=== PATIENT | male | born 1935 | race Caucasian/White ===

== ENCOUNTER 2023-08-23 10:56 | Emergency (ER) | payer OTHER, SELFPAY ==
[2023-08-23 11:00] VITALS: BP 167/87
[2023-08-23 11:02] VITALS: BP 167/87
[2023-08-23 12:06] VITALS: BP 166/76
[2023-08-23] MEDS: ADACEL 0.5 ML IM (12:10)
[2023-08-23 14:00] VITALS: BP 173/83
[2023-08-23 15:00] VITALS: BP 161/73
--- NOTE | 2023-08-23 15:38 | ED.GENMED ---
History of Present Illness
General
Chief Complaint: Head Injury
Source: patient
Exam Limitations: none
Time Seen by Provider: 08/23/23 11:28
Nursing documentation reviewed up to this point in time: agreed with
Travel History
Have you had any contact with someone who has COVID-19?: No
Do you have any symptoms of coronavirus? Fever > 100 degrees, chills, cough, shortness of breath, sore throat, loss of taste or smell, muscle aches, or headache?: No
History of Present Illness
History of Present Illness:
88-year-old male with history as documented presents to the emergency department for evaluation after fall. Patient says that he was trying to kick a plug/wire out of the way and while he was balancing on 1 foot lost his balance and fell to the
side. He struck the middle of his head on the ground. He did not lose consciousness. Family called EMS to bring him to the hospital. He has some mild pain in the area of a frontal scalp/forehead laceration. Denies any significant headache.
Denies any neck pain. He denies any other injuries�no chest pain, abdominal pain, back pain. No pain in his extremities although he does have a minor skin tear to the right forearm. He denies being on blood thinners.
Review of Systems
Review of Systems
All Other Systems: ROS reviewed and negative except as documented in HPI and ROS
Constitutional: Denies fever
Respiratory: Denies cough or trouble breathing
Cardiac: Denies chest pain
ABD/GI: Denies abdominal pain, nausea or vomiting
: Denies flank pain
Musculoskeletal: Denies neck pain or back pain
Skin: Reports other (Laceration)
Neurological: Denies dizzy, headache, weakness or numbness
Phy Exam
Physical Exam
Physical Exam:
General: Awake, alert, oriented x3; no acute distress
Head: Normocephalic, frontal scalp hematoma with a 4 cm linear laceration in the middle of his forehead/frontal scalp
Eyes: Conjunctiva normal, EOMI, pupils equal round reactive to light bilaterally
Throat: Airway intact, handling secretions
Neck: Trachea midline, cervical collar in place, no tenderness in the cervical spine
Lungs: Clear to auscultation bilaterally, no wheezing, rales, rhonchi
Heart: Regular rate and rhythm, no murmurs, gallops, or rubs; no chest wall tenderness
Back: No signs of trauma to the back or flank and no tenderness in thoracic or lumbar spine
Abd: Soft, non distended, nontender
Neuro: Cranial nerves grossly intact, speech fluid
Skin: Frontal scalp laceration, skin tear to the right forearm
Extremities: No reproducible tenderness in his extremities allows for passive range of motion all extremities without significant discomfort; good pulses in all extremities
Scores
Heart Failure Risk
Heart Failure Risk Score: Not Applicable
Heart Score for Chest Pain Patients
STEMI patient?: Not applicable
Withdrawal Assessment of Alcohol
Withdrawal Assessment Completed?: Not applicable
Course
Orders/Labs/Results
Orders:
Orders
08/23/23 11:39
Tetanus/Diphth/Acelpertussis [Adacel] 0.5 ml IM .ONCE ONE
08/23/23 11:40
CT Cervical Spine W/o Iv Contr Urgent
Comment:
Reason For Exam: fall with frontal trauma
CT Head W/o Iv Contrast Urgent
Comment:
Reason For Exam: fall with frontal trauma
08/23/23 14:13
Lidocaine/Epinephrine/Tetracai [Let Topical Anesthetic Gel] 3 ml .ROUTE .STK-MED ONE
08/23/23 14:55
Bacitracin Zinc [Bacitracin Ointment] 1 applic .ROUTE .STK-MED ONE
Vital Signs
Initial and Last Documented VS:
Initial Vital Signs
BP
167/87
08/23/23 11:00
Last Documented Vital Signs
Temp Pulse Resp BP Pulse Ox
36.4 C 81 21 161/73 100
08/23/23 11:02 08/23/23 15:00 08/23/23 15:00 08/23/23 15:00 08/23/23 15:00
Procedures
Laceration Closure
Middle Forehead:
Status of Wound: clean
Size of Wound in cm: 4
Description of Wound Edges: sharp
Preparation: cleaned with saline
Anesthesia: Topical-LET
Revision/Debridement: routine- no revision
Type of Closure: single layer closure
Skin Closure Material: 6-0 nylon
Number of sutures: 7
MDM/Problems Addressed
Differential Diagnosis Includes:
Traumatic head injury including subdural hematoma must be ruled out; he has an obvious frontal hematoma and laceration
MDM/Problems Addressed:
88-year-old male presents for evaluation after mechanical fall with head trauma. No loss of consciousness. Has a frontal scalp hematoma and laceration. Minor skin tear to the right arm. No other serious injuries. Hypertensive otherwise normal
vitals. Exam as above. Sent for CT head and cervical spine which are negative for any acute posttraumatic injury. Laceration irrigated and repaired as documented in procedure note. Cleaned and dressed skin tear. Provided antibiotic ointment.
Discharged to follow-up with PCP or return here for suture removal in 1 week. Patient and family feel comfortable with this and in fact requesting discharge. All questions answered.
Acute Exacerbation and/or Progression of Chronic Illness:
Acutely hypertensive�no signs or symptoms of hypertensive emergency no indication for emergent antihypertensive therapy at present
Acute Exacerbation and/or Progression of Chronic Illness: HTN
*Radiology
Radiology exam reviewed: radiology read reviewed
*Pulse Oximetry
Patient hypoxic: no
*Critical Care Note
Total Time (30-74mins, 75-104mins- exclusive of procedures): Not Applicable
Data Reviewed
Review of Other/Old Records Reveals: Labs and Records
Source: patient and family
ED Attending Note
-
Portions of this chart may have been created with voice recognition software.� Occasional wrong word or��sound alike� substitutions may have occurred due to the inherent limitations of voice recognition software.
Discharge Plan
Departure
Patient Disposition: Home (Routine Discharge)
Date of Disposition: 08/23/23
Time of Disposition: 15:05
Patient with high blood pressure during this ER visit?: Yes
Discharge Problem:
Laceration of forehead, Skin tear of forearm without complication
Instructions: Laceration Repair With Stitches (DC), Wound Care ED
Prescriptions:
No Action
multivitamin Tablet
1 tab PO NOON
fluticasone propionate 50 mcg/actuation [place],Suspension
1 spray INTRANASAL DAILYPRN PRN (Reason: Allergies)
carboxymethylcellulose sodium 1 % Drops, Liquid Gel
1 drp BOTH EYES BIDPRN PRN (Reason: dry eyes)
dexlansoprazole [Dexilant] 60 mg Capsule,Biphase Delayed Releas
60 mg PO DAILY
ascorbate calcium (vitamin C) 500 mg Tablet
1,000 mg PO DAILY
Visbiome 112.5 billion cell Capsule
1 cap PO DAILY
alum-mag hydroxide-simeth [Mag-Al Plus] 200-200-20 mg/5 mL Suspension
30 ml PO Q4HPRN PRN (Reason: indigestion) Qty: 0 0RF
acetaminophen 325 mg Tablet
650 mg PO Q6HPRN PRN (Reason: MILD PAIN) Qty: 100 0RF
metoprolol succinate 25 mg Tablet Extended Release 24 Hr
25 mg PO BID Qty: 60 0RF
multivitamin with folic acid [Tab-A-Mary [place]] 400 mcg Tablet
1 tab PO NOON 30 Days Qty: 30 0RF
sodium chloride 1,000 mg Tablet,Soluble
1,000 mg PO DAILY 30 Days Qty: 30 0RF
guaifenesin [Siltussin SA] 100 mg/5 mL Liquid
100 mg PO Q6HPRN PRN (Reason: COUGH) 14 Days Qty: 473 0RF
magnesium oxide 500 mg Tablet
500 mg PO DAILY 30 Days Qty: 30 0RF
atorvastatin 40 mg Tablet
40 mg PO DAILY@1200 Qty: 30 0RF
docusate sodium 100 mg Capsule
100 mg PO BID 30 Days Qty: 60 0RF
tamsulosin 0.4 mg Capsule
0.4 mg PO HS Qty: 30 0RF
lisinopril 5 mg Tablet
5 mg PO DAILY Qty: 30 0RF
enoxaparin 40 mg/0.4 mL syringe
40 mg SC HS Qty: 8 0RF
Referrals:
Domo Ennis DO [Family Provider] - Call in 1-3 days for appt
Activity Restrictions/Additional Instructions:
You must have your stitches removed in 7 days; you can either return to the emergency room, follow-up with your primary provider or go to urgent care to have these removed. If you notice signs of infection please return immediately.
Thank you for visiting the Emergency Department at [facility].
1. Please schedule a follow up appointment as directed. Call first thing tomorrow morning to make an appointment.
2. If indicated, please take your medications as instructed and indicated on discharge paperwork.
3. If any of your symptoms do not improve, or persist, or become more severe within 6-12 hours, please return to the emergency department for further care.
4. Please return to the emergency department if you develop a headache, neck pain/stiffness, fever greater than 100.4F, chest pain, shortness of breath, persistent nausea, vomiting, slurred speech, difficulty walking, numbness/tingling, weakness,
signs of infection or any other symptoms that are worrisome to you.
Please call [phone] if you have any questions.
Interventions
Interventions:
*Risk Screen - Suicide Last Done: 08/23/23 11:03
*General Assessment Last Done: 08/23/23 11:03
*Neglect/Abuse Screening Last Done: 08/23/23 11:03
ED- Fall Risk Assessment Last Done: 08/23/23 15:13
*ED COVID-19 Vaccine History Last Done: 08/23/23 11:03
*Nursing Disposition Last Done: 08/23/23 15:13
ED- Neurological Assessment Last Done: 08/23/23 11:05
ED-Skin Assessment Last Done: 08/23/23 11:05
Discharge Date and Time
Discharge Date/Time: 08/23/23 15:14
== END 2023-08-23 15:14 | disposition home or self-care (01) ==
LOC: EMR 10:56
PROVIDERS: EMERGENCY PHYSICIAN Emergency Medicine; FAMILY PHYSICIAN Family Medicine
DX: S01.81XA Laceration without foreign body of other part of head, initial encounter (principal); S51.811A Laceration without foreign body of right forearm, initial encounter; W01.0XXA Fall on same level from slipping, tripping and stumbling without subsequent striking against object, initial encounter; I10 Essential (primary) hypertension; Z86.73 Personal history of transient ischemic attack (TIA), and cerebral infarction without residual deficits; Z23 Encounter for immunization
CPT/HCPCS: 99284; 12002; 90471; 70450; 72125; 90715

== ENCOUNTER 2024-03-18 22:35 | Inpatient (IN) | payer OTHER, SELFPAY ==
[2024-03-18 19:25] VITALS: BP 179/102
[2024-03-18 19:52] LABS: % Basophils 0.6 % (0-2); % Eosinophils 1.8 % (0-6); % Immature Granulocytes 0.8 % (0-0.5); % Lymphocytes 29.7 % (20.5-51.1); % Monocytes 7.7 % (1.7-9.3); % Neutrophils 59.4 % (42.2-75.2); Absolute Basophils 0.1 10^3/uL (0-0.2); Absolute Eosinophils 0.2 10^3/uL (0-0.7); Absolute Immature Granulocytes 0.1 10^3/uL (0-0.05); Absolute Lymphocytes 2.5 10^3/uL (1.2-3.4); Absolute Monocytes 0.7 10^3/uL (0.1-0.6); Absolute Neutrophils 5.1 10^3/uL (1.4-6.5); Hemoglobin 12.8 g/dL (13.0-18.0); Mean Corp Hgb Conc. 36.6 g/dL (33.0-37.0); Mean Corpuscular Hgb 33.5 pg (27.0-31.0); Mean Corpuscular Volume 91.6 fL (80.0-94.0); Mean Platelet Volume 10.6 fL (7.4-10.4); Nucleated Red Blood Cells % 0 % (-); Platelet Count 160 10^3/uL (130-400); Red Blood Cell Count 3.82 10^6/uL (4.70-6.10); White Blood Cell Count 8.5 10^3/uL (4.8-10.8)
[2024-03-18 20:05] VITALS: BP 179/87
[2024-03-18 20:17] LABS: ALT (SGPT) 20 U/L (0-50); AST (SGOT) 34 U/L (17-59); Albumin 4.7 g/dl (3.5-5.0); Alkaline Phosphatase 79 U/L (38-126); Blood Urea Nitrogen 29 mg/dl (9-20); Calcium 9.2 mg/dl (8.4-10.2); Carbon Dioxide 24 mmol/L (22-30); Chloride 91 mmol/L (98-107); Glucose 124 mg/dl (70-99); Potassium 4.7 mmol/L (3.5-5.1); Sodium 130 mmol/L (135-145); Total Bilirubin 0.7 mg/dl (0.2-1.3); Total Protein 8.2 g/dl (6.3-8.2); eGFR > 60.00
[2024-03-18 20:30] LABS: Troponin I < 0.012 ng/ml
--- NOTE | 2024-03-18 20:44 | ED.GENMED ---
History of Present Illness
General
Chief Complaint: Headache
Source: patient and family
Exam Limitations: none
Time Seen by Provider: 03/18/24 20:23
History of Present Illness
History of Present Illness:
89-year-old male with 2 major issues. #1 is progressive disequilibrium. Much worse over the last week. Increased trouble ambulating and issues with ADL. Also notes intermittent chest discomfort with throughout the day. None currently. Somewhat
exertional in nature. No shortness of breath or diaphoresis. No syncope.
Past History
Past History
ED Past Medical History: Arrthythmia, HTN, Hypercholesterolemia and Valvular disease
ED Past Surgical History: Orthopedic and Other (Cataracts)
Review of Systems
Review of Systems
All Other Systems: Not applicable
Constitutional: Denies fever or chills
Respiratory: Reports no symptoms
ABD/GI: Reports no symptoms
Phy Exam
Physical Exam
Physical Exam:
GENERAL: Alert and oriented in no apparent distress
EYE: Orbits normal.
NECK: Supple, no carotid bruit
ENT: Pharynx without erythema
CARDIAC: Regular rate and rhythm
LUNGS: Clear breath sounds,normal
ABDOMEN: Soft, without focal tenderness or distention
NEUROLOGICAL: Alert and oriented , grossly non-focal. Speech normal. Ynzbxi-[id number]-pike normal. No drift. Upper and lower extremity strength normal.
SKIN: Warm and dry, no rash or lesion, no discoloration, skin intact.
MUSCULOSKELETAL: No edema,no deformity.Good color
PSYCH: Normal and appropriate interaction.
Course
Orders/Labs/Results
Orders:
Orders
03/18/24 Breakfast
Cholesterol Lowering
At Your Request: Full Participation
Cholesterol Lowering: Sodium, 2 Gram
03/18/24 19:28
Electrocardiogram (*1) Urgent
Reason for Study: Chest Pain
03/18/24 19:29
EKG- Treatment ONCE
03/18/24 19:33
CT Head W/o Iv Contrast Urgent
Comment:
Reason For Exam: headaches and loss of balance x 3 days
03/18/24 19:40
Complete Blood Count/With Diff Urgent
Comprehensive Metabolic Panel Urgent
Troponin I Urgent
03/18/24 21:30
Urinalysis Reflex To Culture Urgent
Date Specimen was Collected: 03/18/24
Time Specimen was Collected: 21:29
Urine Microscopic Reflex Cult Urgent
Urine Culture Urgent
MEG Source: U
Specimen Description:
Date Specimen was Collected: 03/18/24
Time Specimen was Collected: 21:29
03/18/24 21:53
Admit/Transfer Patient As Directed
Co-Sign Provider:
Level of Care: Inpatient admission
Assign to:: Telemetry
Physician / Group: bandar
Diagnosis: chest pain
Reason for Telemetry: Chest Pain syndromes
Date to Stop Telemetry: 03/20/24
Time to Stop Telemetry: 11:00
Reason for Hospitalization: chest pain
Ataxia
Expected length of stay greater than two midnights?: Yes
ELOS- Estimated Length of Stay in days: 3
I certify the patient meets the requirements for IP care: Yes
PRN Pain Medication Management As Directed
May give lesser potent ordered pain med per pt: Yes
preference::
Protocol:: Medication orders for pain may be administered in a
manner that supports deferring to patient preference
when the pt is:
- Requesting an ordered lesser potent pain medication.
Least to most potent pain medications are defined
as: acetaminophen < NSAID < tramadol < opioids
(morphine, oxycodone, hydromorphone).
- Requesting a lesser dose of the same medication IF
ORDERED.
- Requesting a less intrusive route of administration
if both routes are prescribed by the provider (PO <
IV).
03/18/24 21:54
Code Status As Directed
Resuscitation Status: Full Code
03/18/24 23:32
Troponin I Q3H
Comment: at admit & Q3H for 3 total including ED draws, obtain ECG with each level
Atorvastatin [Lipitor] 40 mg PO HS
03/18/24 23:32
CARDIOLOGY CONSULT Routine
Consulting Provider: Vanessa Lozano
Was physician already notified: No
Reason for consult: chest pain
Consult Notification Routine
Specialty to Notify: Cardiology
Date consulting provider notified: 03/19/24
Time consulting provider notified: 07:42
Notified:: Provider
Comment: tt
Consult Notification Routine
Specialty to Notify: Neurology
Date consulting provider notified: 03/19/24
Time consulting provider notified: 07:39
Notified:: Provider
Comment: tt
NEUROLOGY CONSULT Routine
Consulting Provider: Fortino Zaidi
Was physician already notified: No
Reason for consult: ataxia
Glycohemoglobin (HgbA1c) Routine
Activity As Directed
Activity Level: As Tolerated
INT (Intravenous Needle Therapy) As Directed
Comment: maintain peripheral IV access
Intake/ Output As Directed
Frequency: Per unit guidelines
Orthostatic Vital Signs As Directed
Orthostatic VS Frequency: BID
Vital Signs As Directed
Frequency: q4h
Weight As Directed
Frequency: Daily
Ot Eval And Treat Routine
Pt Eval And Treat Routine
Activity Level: As Tolerated
DX Deep Vein Thrombosis Video Routine
03/19/24 03:23
Troponin I Q3H
Comment: at admit & Q3H for 3 total including ED draws, obtain ECG with each level
03/19/24 05:32
Electrocardiogram (*1) Q6H
Reason for Study: Chest Pain
Comment: at admission and Q3H for total of 3, to be done with each troponin
03/19/24 06:00
Basic Metabolic Panel IN AM
Cardiovascular Evaluation IN AM
Complete Blood Count/No Diff IN AM
03/19/24 08:00
Magnesium l-Lactate [Mag-Tab Sr] 84 mg PO DAILY
Metoprolol Xl [Toprol Xl] 25 mg PO BID
Pantoprazole [Protonix] 40 mg PO DAILY
03/19/24 11:32
Electrocardiogram (*1) Q6H
Reason for Study: Chest Pain
Comment: at admission and Q3H for total of 3, to be done with each troponin
03/19/24 13:30
Amlodipine [Norvasc] 5 mg PO DAILY@1330
03/19/24 18:00
Enoxaparin Sodium [Lovenox] 40 mg SC QPM
03/20/24 11:00
DC Protocol for Telemetry ONCE
Abnormal Lab Results
03/18/24 03/18/24
19:40 21:30
RBC 3.82 L 10^6/uL
(4.70-6.10)
Hgb 12.8 L g/dL
(13.0-18.0)
Hct 35.0 L %
(39.0-52.0)
MCH 33.5 H pg
(27.0-31.0)
MPV 10.6 H fL
(7.4-10.4)
Abs Immat Gran (auto) 0.1 H 10^3/uL
(0-0.05)
Absolute Monos (auto) 0.7 H 10^3/uL
(0.1-0.6)
Immature Gran % 0.8 H %
(0-0.5)
Sodium 130 L mmol/L
(135-145)
Chloride 91 L mmol/L
(98-107)
BUN 29 H mg/dl
(9-20)
Glucose 124 H mg/dl
(70-99)
Ur Occult Blood Reflex 1+ A
(Negative)
Leukocyte Esterase Rfl 2+ A
(Negative)
Urine RBC 3-6 A /HPF
(0-2)
Urine WBC (Reflex) 30-40 A /HPF
(0-5)
Urine Bacteria (Reflex) Moderate A
(Negative)
Urine Albumin (Reflex) 1+ A
(Neg - Trace)
03/18/24 19:40
03/18/24 19:40
Vital Signs
Initial and Last Documented VS:
Initial Vital Signs
Temp Pulse Resp BP Pulse Ox
98.1 F 78 18 179/102 98
03/18/24 19:25 03/18/24 19:25 03/18/24 19:25 03/18/24 19:25 03/18/24 19:25
Last Documented Vital Signs
Temp Pulse Resp BP Pulse Ox
97.6 F 66 18 121/69 99
03/19/24 03:28 03/19/24 03:28 03/19/24 03:28 03/19/24 03:28 03/19/24 03:28
*Radiology
Radiology exam reviewed: radiology read reviewed (No acute findings)
*Pulse Oximetry
Patient hypoxic: no
*EKG
Interpreted by ED Provider?: Yes
Interpretation: abnormal
Comparison EKG: changes noted
Heart Rate: 77
Rate: normal
Rhythm: sinus
[place]: normal axis
Interval: first degree heart block
QRS Pattern: normal QRS
Ischemia: no ischemia
*Motion Picture Set Up Worker Interpretation
Rate: normal
Heart Rate: 80
Rhythm: sinus
*Critical Care Note
Total Time (30-74mins, 75-104mins- exclusive of procedures): Not Applicable
Data Reviewed
Review of Other/Old Records Reveals: Labs, Records and Testing
Update Note
Update Note:
Patient with 2 seemingly unrelated issues. Progressive ataxia but has gotten much worse over the last week. Possibly old small vessel disease. However would consider a small CVA. No findings on CT. Nonfocal exam. In addition patient has had
recurring chest pain throughout the day. Cardiac testing is stable but to consider angina. Warrants inpatient management
ED Attending Note
-
Portions of this chart may have been created with voice recognition software.� Occasional wrong word or��sound alike� substitutions may have occurred due to the inherent limitations of voice recognition software.
Discharge Plan
Departure
Patient Disposition: Admit
Date of Disposition: 03/18/24
Time of Disposition: 21:29
Presentation/result/management discussed w/ accepting MD/DO: Hospitalist
Discharge Problem:
Recurring chest pain, Disequilibrium/ataxia, Minimal hyponatremia
Interventions
Interventions:
*Risk Screen - Suicide Last Done: 03/18/24 23:53
*General Assessment Last Done: 03/18/24 19:25
*Neglect/Abuse Screening Last Done: 03/18/24 19:25
*ED COVID-19 Vaccine History Last Done: 03/18/24 23:53
*Nursing Disposition Last Done: 03/18/24 23:22
ED- Cardiac Assessment Last Done: 03/18/24 20:50
ED- Neurological Assessment Last Done: 03/18/24 20:50
ED- Pulmonary Assessment Last Done: 03/18/24 20:51
Discharge Date and Time
Discharge Date/Time: 03/18/24 23:22
[2024-03-18 20:59] VITALS: BP 185/77
--- NOTE | 2024-03-18 21:29 | HPS.HSE ---
Addendum entered and electronically signed by Rojas Kay DO 03/18/24 22:46:
Patient seen and examined independently. Agree with findings and plan as set forth by MARIBEL Dobbs.
Patient is an 89y M with PMH significant for A-Fib, hypertension and orthostatic hypotension who presents to ED c/o unsteady gait. History obtained from patient and his family at the bedside. Patient had fall in august with head trauma. Since
that time he has unsteady gait that has become worse over the past few weeks. No recurrent falls however. Patient presented to the ED today for evaluation of his gait dysfunction and overall weakness / 'dizziness'. In the ED waiting room, pateint
developed substernal chest pain. This has since resolved. No additional complaints including N/V, SOB, diaphoresis, etc.
Ass:
Ataxia / Gait Dysfunction
Chest Pain
Orthostatic Hypotension
Benign Hypertension
Chronic Hyponatremia
Paroxysmal Atrial Fibrillation
GERD / Connell's Esophagus
Aortic Stenosis s/p AVR
Abnormal UA / Possible UTI
Plan:
Observe overnight for further evaluation and treatment.
Follow serial troponin / EKGs. Monitor for any recurrent chest pain.
Check orthostatic signs BID.
Consider trial of midodrine if needed.
PT / OT evaluations for gait assessment.
CT head in the ED shows chronic microvascular changes.
May benefit from MRI for further evaluation - likely as an outpatient.
Continue current medications and adjust as needed fort adequate BP control.
Patient has chronic hyponatremia that does not appear changed at all from his baseline - follow for any changes.
Original Note:
Family Physician
-
Family Physician: Celso Christian
Chief Complaint
-
generalized weakness, dizzy
History of Present Illness
89-year-old male with PMh for orthostatics, atrial fib, ht, hyperlipidemia, htn presented with progressively worsening weakness, dizzy, off balance for past one week. since the fall in august, stated weak and off balance. a week ago, he was noted to
have dark stool. he took pepto Bismol due to abdominal discomfort. since then his weakness got worse. no more dark stool for past one week. denied abdominal pain,n,v,d. denied ESCOBAR. today he stated some chest heaviness, discomfort which lasted for
few minutes. denied sob. he is scheduled have a ECHO next week. denied dysuria or hematuria.
admitting for further management.
Medical History
Past Medical History
Past Medical History: Reports Other
Additional Past Medical History:
anemia
mookie's esophagus
htn
paf
hld
Past Surgical History: Reports Other
Additional Past Surgical History:
aortic valve replacement
hip surgery
Social History
Tobacco: Former Smoker
Alcohol: None
Drug: None
Personal:
Living: With Family
Family History
Family History: Not pertinent
Allergies / Home Medications
Allergies reflects when Allergies were last updated in [facility].
Home Medications with original date entered in [facility]
Allergy/Medication List:
Allergies
Allergy/AdvReac Type Severity Reaction Status Date / Time
acetaminophen [From Percocet] Allergy Unknown Nausea / Verified 06/14/23 13:57
Vomiting
oxycodone [From Percocet] Allergy Unknown Nausea / Verified 06/14/23 13:57
Vomiting
Home Medications
ascorbate calcium (vitamin C) 500 mg tablet 1,000 mg PO DAILY 06/07/23
dexlansoprazole 60 mg capsule,biphase delayed release (Dexilant) 60 mg PO DAILY 06/07/23
metoprolol succinate 25 mg tablet,extended release 24 hr 25 mg PO BID #60 tabs 06/20/23
amlodipine 5 mg tablet 5 mg PO DAILY@1330 03/18/24
atorvastatin 40 mg tablet 40 mg PO HS atorvastatin 03/18/24
magnesium oxide 300 mg PO DAILY 03/18/24
Review of Systems
-
Constitutional: Reports No Symptoms
EENT: Reports No Symptoms
Respiratory: Reports No Symptoms
Cardiac: Reports Chest Pain
Abdomen/GI: Reports No Symptoms
: Reports No Symptoms
Musculoskeletal: Reports No Symptoms
Skin: Reports No Symptoms
Neurological: Reports Dizzy and Weakness
Endocrine: Reports No Symptoms
Hematologic/Lymphatic: Reports No Symptoms
Psych: Reports No Symptoms
Physical Exam
Vital Signs
Vital Signs
Temp Pulse Resp BP Pulse Ox
98.1 F 70 20 185/77 99
03/18/24 19:25 03/18/24 21:00 03/18/24 21:00 03/18/24 20:59 03/18/24 21:00
Physical Exam
General: Well Developed, Well Nourished and No Apparent Distress
HEENT: NormoCephalic, Moist mucous membranes and Atraumatic
Respiratory: Clear
Cardiac: S1/S2 and Regular Rhythm; No Murmur or Rub
GI: Soft, Non Tender, Non Distended and Normal Bowel Sounds; No Organomegaly
Rectal: Deferred by Provider
Musculoskeletal: No Clubbing, No Cyanosis and No Edema
Skin: No Rash
Neuro: Nonfocal/grossly intact
Psych: Calm
Laboratory Results
-
03/18/24 19:40
03/18/24 19:40
Laboratory Results
Total Bilirubin 0.7 mg/dl (0.2-1.3) 03/18/24 19:40
AST 34 U/L (17-59) 03/18/24 19:40
ALT 20 U/L (0-50) 03/18/24 19:40
Alkaline Phosphatase 79 U/L (38-126) 03/18/24 19:40
Troponin I < 0.012 ng/ml 03/18/24 19:40
Data Reviewed
-
CT Scan: Report Reviewed by me
Lab Data: Labs Reviewed by me
Impression/Plan
-
#recurrent ataxia unclear cause.
-head CT with No acute intracranial abnormalities.Findings again seen 0compatible with diffuse cortical atrophy with nonspecific white matter changes
-obtain orthostatics.
-PT/OT consult
-neurology consult
#chest pain
-at present denied pain
-trop negative
-continue to trend trop
-EKG with NSR with first degree block
#chronic hyponatremia
-ctm
#essential HTN
-BP stable
-Norvasc continued with hold parameter
#history of PAF s/p ablation
#history of AVR (bovine)
-metoprolol continued
Hyperlipidemia
- continue with statin.
#GERD
- continue with Dexilant 60 mg daily
#hxt of hypotension
# DVT prophylaxis- continue with Lovenox SQ daily.
[2024-03-18 21:37] LABS: Urine Albumin 1+ (Neg - Trace); Urine Bilirubin Negative (Negative); Urine Character Slightly Cloudy (Clear); Urine Color Yellow; Urine Glucose Negative (Negative); Urine Ketone Negative (Negative); Urine Leukocyte 2+ (Negative); Urine Nitrite Negative (Negative); Urine Occult Blood 1+ (Negative); Urine Urobilinogen Negative (Neg - 1+)
[2024-03-18 22:09] LABS: Urine Bacteria Moderate (Negative); Urine Squamous Cell 0-2 /LPF (Few); Urine White Cell 30-40 /HPF (0-5)
[2024-03-18 23:38] VITALS: BP 180/100; BMI 19.6
[2024-03-19] MEDS: LIPITOR 40 MG PO (00:16)
[2024-03-19] MEDS: MELATONIN 5 MG PO (00:16)
[2024-03-19] MEDS: TOPROL XL 25 MG PO ×2 (00:17→09:24)
[2024-03-19 00:42] LABS: Troponin I < 0.012 ng/ml
[2024-03-19] MEDS: STERILE WATER FOR INJECTION 10 ML IV (01:35)
[2024-03-19] MEDS: ROCEPHIN 1000 MG IV (01:36)
[2024-03-19 03:28] VITALS: BP 121/69
[2024-03-19 04:07] LABS: Troponin I < 0.012 ng/ml
[2024-03-19 08:03] VITALS: BP 168/83
--- NOTE | 2024-03-19 08:15 | W.PN.HOSP.TC ---
Addendum entered and electronically signed by Gerry Davalos MD 03/19/24 23:55:
Attending Addendum:
I saw and evaluated the patient. I reviewed the resident�s note and agree with findings and plan as documented in the resident�s note. Sub: Full 12 point ROS reviewed and negative except as documented Exam: Vitals reviewed in chart GEN-
#recurrent ataxia
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
-pos orthostatics
- keep well hydrated
-neurology consult- OK for DC and follow up as OP
#chest pain
- echo- 03/19- Mild concentric left ventricular hypertrophy. LV ejection fraction is 55-60% by
-at present denied pain
-trop negative
- cards- follow up OP stress test
#chronic hyponatremia
-ctm stable
#essential HTN
-BP stable
-Norvasc continued with hold parameter
#history of PAF s/p ablation
#history of AVR (bovine)
-metoprolol continued
Hyperlipidemia
- continue with statin.
#GERD
- continue with Dexilant 60 mg daily
#hxt of hypotension
# DVT prophylaxis- continue with Lovenox SQ daily.
Dispo DC home
Time spent coordinating care, DC planning, review of DC plan of care with resident, transition of care, review of records, med rec/scripts sent electronically, consults, notes, d/w consultants, nursing, family, and CM� 36 mins
Original Note:
Today's Communication/Plan
-
.
Assessment / Plan
Assessment / Plan
Mr. Alexys Benz is an 89yo M pmh paroxysmal afib s/p ablation, s/p SAVR, HTN, orthostatic HoTN, HLD, Connell's esophagus admitted 03/18 for chest pain and a progressive disequilibrium.
Hypertensive urgency
- metoprolol 50 mg bid
- hydralazine 5mg q6h prn for SBP>160
- Ct head no acute abnormalities
- bibasilar crackles
- cxr pending
- monitor bp, cmp
Ataxia
- head CT: No acute intracranial abnormalities
- echo pending
- PT/OT
- cards, neuro consulted
Chest pain
- denies pain at present
- undetectable troponins x3
- ECG: NSR w first degree heart block
- tele
UTI
- urinalysis, urine microscopy concerning for infection
- urine cx pending
- day 2 ceftriaxone
Orthostatic HoTN
- orthostatic VS - (+) here
- PT/OT
Afib s/p ablation, s/p TAVR
- cont metoprolol
Connell's esophagus/GERD
- pantoprazole
HTN, HLD
- continue amlodipine, statin
Chronic hyponatremia
- does not appear changed from baseline
DVT prophylaxis:
- subq lovenox
Code status: FULL CODE
Diet: cholesterol lowering
Anticipated Discharge: 24 - 48 hours
Subjective/Interval History
-
Date of Service: March 19, 2024
Mr. Alexys Benz is an 89yo M pmh paroxysmal afib s/p ablation, s/p SAVR, HTN, orthostatic HoTN, HLD, Connell's esophagus admitted 03/18 for chest pain and a progressive disequilibrium.
Pt experienced a fall in August with head trauma and has been experiencing worsening unsteadiness. While in the waiting room, pt experienced transient substernal CP. Denies any current CP, SOB, palpitations.
Objective Data
-
Labs:
Laboratory Results
03/18/24 03/19/24
19:40 07:18
WBC Pending
Hgb Pending
Hct Pending
Plt Count Pending
Sodium 130 L Pending
Potassium 4.7 Pending
Chloride 91 L Pending
Carbon Dioxide 24 Pending
BUN 29 H Pending
Creatinine 0.8 Pending
Glucose 124 H Pending
Calcium 9.2 Pending
Total Bilirubin 0.7
AST 34
ALT 20
Alkaline Phosphatase 79
Vital Signs:
Vital Signs
Temp Pulse Resp BP Pulse Ox
98.0 F 62 17 168/83 98
03/19/24 08:03 03/19/24 08:03 03/19/24 08:03 03/19/24 08:03 03/19/24 08:03
I&O
03/18/24 03/19/24 03/20/24
06:59 06:59 06:59
Intake Total 480 / 480
Output Total 875 / 875
Balance -395 / -395
Review of Systems
-
History Source: Patient
All other systems: Reviewed and negative
Constitutional: Reports No Symptoms
Respiratory: Reports No Symptoms
Cardiac: Reports No Symptoms
Abdomen/GI: Reports No Symptoms
Genitourinary: Reports Frequency; Denies Dysuria, Flank Pain or Urgency
Neuro: Reports Dizzy and Weakness
Physical Exam
-
General: No Apparent Distress and Conversant
HEENT: Normocephalic, Atraumatic, Anicteric, PERRLA, Nose Appears Normal and Other (left beating nystagmus, (+) L head impulse test)
Respiratory: Crackles (bibasilar)
Cardiac: Regular Rhythm, S1/S2 and Tachycardic
GI: Soft, Nontender, Normal Bowel Sounds, Flat and No Hepatosplenomegaly
Genito-urinary: Clear Urine
Musculoskeletal: No Cyanosis and No Edema
Skin: Warm and Dry
Neuro: Awake, AO x 3, No Motor Deficits, Central Nerve's Intact, No Sensory Deficits and DTR's Intact & Symmetrica
Psych: Calm
[2024-03-19 08:40] LABS: Hematocrit 30.3 % (39.0-52.0); Hemoglobin 11.1 g/dL (13.0-18.0); Mean Corp Hgb Conc. 36.6 g/dL (33.0-37.0); Mean Corpuscular Volume 87.3 fL (80.0-94.0); Mean Platelet Volume 10.8 fL (7.4-10.4); Platelet Count 153 10^3/uL (130-400); Red Blood Cell Count 3.47 10^6/uL (4.70-6.10); Red Cell Dist. Width 13.1 % (11.5-14.5); White Blood Cell Count 7.9 10^3/uL (4.8-10.8)
[2024-03-19 08:57] LABS: Glycohemoglobin (HgbA1c) 5.3 % (4.0-5.6)
[2024-03-19 09:05] LABS: Blood Urea Nitrogen 25 mg/dl (9-20); Calcium 8.9 mg/dl (8.4-10.2); Carbon Dioxide 24 mmol/L (22-30); Chloride 95 mmol/L (98-107); Estimated Creatinine Clearance 64 ml/min; Glucose 77 mg/dl (70-99); HDL Cholesterol 40 mg/dl; LDL Cholesterol, Calculated 65 mg/dl; Potassium 3.9 mmol/L (3.5-5.1); Sodium 131 mmol/L (135-145); Total Cholesterol 126 mg/dl (50-199); Triglyceride 108 mg/dl (10-149); Very Low Density Lipoprotein 21 mg/dl (0-30); eGFR > 60.00
[2024-03-19 09:24] VITALS: BP 148/87; BP 167/96; BP 176/99; PULSE 62; PULSE 79; PULSE 88; O2SAT 98
[2024-03-19] MEDS: PROTONIX 40 MG PO (09:24)
[2024-03-19] MEDS: MAG-TAB SR 84 MG PO (09:24)
--- NOTE | 2024-03-19 09:30 | PTOTSP ---
pt currently requires supervision to no assistance to complete simple ADLs, functional transfers, ambulation. pt does report feeling lightheaded with standing, orthostatic BP recorded. will defer to PT for ambulation, balance tasks. no acute OT
needs identified at this time, will sign off.
[2024-03-19 09:32] VITALS: BP 148/67; BP 167/96; BP 176/99; PULSE 62; PULSE 84
--- NOTE | 2024-03-19 11:00 | CON.CAR ---
Addendum entered and electronically signed by Dinesh Harrington MD 03/19/24 16:18:
I saw and examined the patient.
The Morning Caregiver's note was reviewed and I agree with the note.
Comment: Briefly, 89-year-old man past medical history of aortic valve replacement, hypertension orthostasis who presents with gait instability and report of cloudy urine. Patient reported chest discomfort while in the emergency department for
which cardiology is consulted.
In speaking with the patient he is resting comfortably in bed this morning without any chest discomfort
ECGs do not show any acute ischemic changes
Troponin is undetectable here x3
Transthoracic echocardiogram without obvious segmental wall motion abnormalities, preserved left ventricular systolic function and normal prosthetic aortic valve gradients
Stable cardiac status
We will arrange outpatient follow-up, outpatient stress testing can be discussed at that time
We will sign off, please recall as needed
Original Note:
Consultation
Consultation Request
Date/Time Consultation Requested: 03/19/2024
Date/Time Consultation Performed: 03/19/2024 at 0945
Requesting Provider: Dr. Kay
Performing Provider: Liza Wyatt PA-C for Dr. Harrington
Reason for Consultation: Chest pain
Medical History
-
History of Present Illness:
HPI: Alexys is an 89-year-old male with past medical history of hypertension, hyperlipidemia, aortic valve replacement with postop atrial fibrillation, GERD, and orthostasis. He presented to ER for evaluation of cloudy urine and unsteady gait.
He states about 1 week ago he noted that his urine was becoming cloudy and he had elevated blood pressures with abdominal pain and felt that his balance was off. Symptoms continued, prompting emergency room visit. While in the ER, he noted some
chest discomfort that was centrally located and mild. Pain lasted only a few moments before resolving. He has noted intermittent chest discomfort at times, stating that it is random with no clear aggravating factors. He does note that typically
it feels better when laying down. In ER, he was found to have evidence of urinary tract infection. Head CT was negative for any intracranial abnormalities. He worked with physical therapy this morning and was found to be somewhat orthostatic with
blood pressures dropping from 167/96 to 148/67 when going from sitting to standing. He did note mild dizziness with this. Cardiology consulted for evaluation given chest discomfort. He reports no pain currently. Troponins negative x 3 in ER. His
EKG is stable sinus rhythm with first-degree AV block.
PMH:
Hypertension
Hyperlipidemia
s/p AVR 09/29/2014
h/o post-op Afib
Paroxysmal atrial tachycardia
GERD
Orthostasis
Past Medical History
Past Medical History: Other (In HPI)
Past Surgical History: Cardiac (Aortic valve replacement) and Orthopedic (L hip replacement, right hip hemiarthroplasty 06/08/2023)
Social History
Tobacco: Non-Smoker
Alcohol: None
Drug: None
Personal:
Living: With Family
Employment: Retired
Family History
Family History: Reviewed & Not Pertinent
Allergies / Home Medications
Allergy/AdvReac Type Severity Reaction Status Date / Time
acetaminophen [From Percocet] Allergy Unknown Nausea / Verified 06/14/23 13:57
Vomiting
oxycodone [From Percocet] Allergy Unknown Nausea / Verified 06/14/23 13:57
Vomiting
�Medication �Instructions �Recorded �Confirmed �Type
ascorbate calcium (vitamin C) 500 1,000 mg PO DAILY Supplement 06/07/23 03/18/24 History
mg tablet
dexlansoprazole 60 mg 60 mg PO DAILY Gastrointestinal 06/07/23 03/18/24 History
capsule,biphase delayed release Issue
(Dexilant)
metoprolol succinate 25 mg 25 mg PO BID #60 tabs 06/20/23 03/18/24 Rx
tablet,extended release 24 hr
amlodipine 5 mg tablet 5 mg PO DAILY@1330 Blood Pressure 03/18/24 03/18/24 History
atorvastatin 40 mg tablet 40 mg PO HS High Cholesterol 03/18/24 03/18/24 History
magnesium oxide 300 mg PO DAILY Supplement 03/18/24 03/18/24 History
Review of Systems
-
History Source: Patient
Physical Exam
Vital Signs
Temp Pulse Resp BP Pulse Ox
98.0 F 62 17 168/83 98
03/19/24 08:03 03/19/24 08:03 03/19/24 08:03 03/19/24 08:03 03/19/24 08:03
Lab Results
03/19/24 07:18
03/19/24 07:18
Troponin I < 0.012 ng/ml 03/19/24 03:23
Physical Exam
General: Well Developed, Well Nourished and No Apparent Distress
HEENT: Normocephalic, Anicteric and Moist Mucous Membranes
Respiratory: Clear and Non Labored Respirations
Cardiac: S1/S2 and Regular Rhythm
Musculoskeletal: No Clubbing, No Cyanosis and No Edema
Skin: Warm and Dry
Neuro: AO x 3 and Nonfocal/Grossly Intact
Psych: Calm
Impression / Plan
-
PCP: Dr. Christian
Cardiology: Dr. Collin Lozano
Impression:
Presented with unsteady gait
Chest discomfort
Urinary tract infection
Hypertension
Hyperlipidemia
s/p AVR 09/29/2014
h/o post-op Afib
Paroxysmal atrial tachycardia
GERD
Orthostasis
Echo 03/19/2024: Study pending
Plan:
-Presented with unsteady gait and noted to have intermittent chest discomfort while in ER.
-Troponin negative x 3. EKG stable, sinus rhythm with first-degree AV block. No acute ischemic changes noted.
-He is chest pain-free currently.
-Continue management of urinary tract infection per primary service.
-With his unsteady gait, head CT showed no acute intracranial abnormality. Blood pressure did drop when going from sitting to standing while working with physical therapy.
-Continue amlodipine and Toprol. Consider use of compression stockings.
-Blood pressure remains elevated. Previously he did not tolerate lisinopril as this worsened his orthostasis and he had significant hyponatremia while on thiazide diuretic in the past.
-He has history of postop atrial fibrillation, however has had no significant arrhythmias noted since that time. He remains off of anticoagulation. His heart rates are stable.
-Check echo. Previously noted to have 'normal function' based on note from previous dross skimmer. Reports are not available to review.
-LDL 65. Continues on Lipitor 40 mg daily.
-Will arrange follow-up. Will consider stress testing as OP.
HPI: Alexys is an 89-year-old male with past medical history of hypertension, hyperlipidemia, aortic valve replacement with postop atrial fibrillation, GERD, and orthostasis. He presented to ER for evaluation of cloudy urine and unsteady gait.
He states about 1 week ago he noted that his urine was becoming cloudy and he had elevated blood pressures with abdominal pain and felt that his balance was off. Symptoms continued, prompting emergency room visit. While in the ER, he noted some
chest discomfort that was centrally located and mild. Pain lasted only a few moments before resolving. He has noted intermittent chest discomfort at times, stating that it is random with no clear aggravating factors. He does note that typically
it feels better when laying down. In ER, he was found to have evidence of urinary tract infection. Head CT was negative for any intracranial abnormalities. He worked with physical therapy this morning and was found to be somewhat orthostatic with
blood pressures dropping from 167/96 to 148/67 when going from sitting to standing. He did note mild dizziness with this. Cardiology consulted for evaluation given chest discomfort. He reports no pain currently. Troponins negative x 3 in ER. His
EKG is stable sinus rhythm with first-degree AV block.
Data Reviewed
-
EKG: Tracing Personally Visualized and interpreted
CT Scan: Report Reviewed by me
Labs: Labs Reviewed by me
Old Records: Reviewed
[2024-03-19 11:08] VITALS: BP 172/86
--- NOTE | 2024-03-19 11:20 | CM ---
Addendum entered by Maeve Boyce 03/19/24 15:48:
Patient accepted by [facility].
Plan: home with VN when stable
[facility]
fax# [phone]
Addendum entered by Maeve Boyce 03/19/24 11:46:
IMM completed.
Original Note:
Patient seen bedside.
IA completed.
Patient lives with spouse in a 1 story home with 1 step to enter, no steps if he uses the garage.
Daughter is currently staying with spouse.
Patient ambulated with a cane.
Patient drives.
Patient has had [facility] in the past.
PT saw patient and still with orthostasis. Recommendation is for possible home therapy.
patient agreeable to VN. Referral to [facility]
Daughter or granddaughter will transport when stable.
PCP; Dr Esposito
Pharmacy: [facility]
Plan: home with VN
[2024-03-19 12:26] VITALS: BMI 19.1
[2024-03-19 13:48] VITALS: BP 167/85
[2024-03-19] MEDS: NORVASC 5 MG PO (13:56)
--- NOTE | 2024-03-19 16:12 | W.DCSUMMARY ---
Addendum entered and electronically signed by Gerry Davalos MD 03/19/24 23:57:
Read, reviewed, and agree. See same day progress note for additional details. Addendum HTN- increased metoprolol, UTI- urine cx-p- dc home on CIPRO not septic
Romeo Davalos MD
Original Note:
Documented by User: Cecilia Champion DO, Resident 03/19/24 17:23
Discharge Summary
Discharge Data
Date of Admission: 03/18/24
Date of Discharge: 03/19/24
-
Pending Results: No
Hospital Course
Mr. Alexys Benz is an 89yo M pmh paroxysmal afib s/p ablation, s/p SAVR, HTN, orthostatic HoTN, HLD, Connell's esophagus admitted 03/18 for chest pain and a progressive disequilibrium. He developed transient substernal chest pain in the ER
waiting room. Troponins undetectable, ECG NSR w 1st degree AV block. Urinalysis is concerning for a UTI. Received 1g ceftriaxone in the ED.Head CT shows no acute intracranial abnormalities. On echo, EF 55-60%, well seated aortic valve, mild TR, mild
ascending aorta dilation. Was deemed stable by neurology and cardiology. Will f/u outpt cardiology.
Discharge Plan
-
Patient Disposition: Home (Routine Discharge)
Discharge Diagnosis/Procedures: Chest pain, Orthostatic Hypotension
Condition: Good
Activity Restrictions/Additional Instructions:
Please follow up with your primary care provider in 1-2 weeks.
Please follow up with Liza Wyatt PA-C on 04/07 at 3:40pm
Please return to the hospital if you experience any new or worsening symptoms. This includes inability to speak, profound weakness, drooping face.
Instructions: Orthostatic hypotension
Referrals:
Celso Christian DO [Family Provider] -
Liza Wyatt PA-C [Specified Professional Personl] - 04/07/24 3:40 pm (You have a follow up visit with Dr. Collin Fulton's PA, Liza Wyatt, at the [facility]. Please call with questions.)
Prescriptions:
New
ciprofloxacin HCl 500 mg tablet
500 mg PO BID 7 Days Qty: 14 0RF
metoprolol succinate 50 mg Tablet Extended Release 24 Hr
50 mg PO BID 30 Days Qty: 60 0RF
Continued
dexlansoprazole [Dexilant] 60 mg Capsule,Biphase Delayed Releas
60 mg PO DAILY
ascorbate calcium (vitamin C) 500 mg Tablet
1,000 mg PO DAILY
amlodipine 5 mg tablet
5 mg PO DAILY@1330
magnesium oxide 300 mg magnesium Tablet
300 mg PO DAILY
atorvastatin 40 mg tablet
40 mg PO HS
Discontinued
metoprolol succinate 25 mg Tablet Extended Release 24 Hr
25 mg PO BID Qty: 60 0RF
Discharge Orders:
Discharge Patient (As Directed); Ordered 03/19/24
Ordered By: Cecilia Champion
Discharge Date and Time
Discharge Date/Time: 03/19/24 18:00
Print Language: NEPALESE

Documented by User: Gerry Davalos MD 03/19/24 23:50
Discharge Summary
Discharge Data
Date of Admission: 03/18/24
Date of Discharge: 03/19/24
Discharge Plan
-
Patient Disposition: Home (Routine Discharge)
Discharge Diagnosis/Procedures: Chest pain, Orthostatic Hypotension
Condition: Good
Activity Restrictions/Additional Instructions:
Please follow up with your primary care provider in 1-2 weeks.
Please follow up with Liza Wyatt PA-C on 04/07 at 3:40pm
Please return to the hospital if you experience any new or worsening symptoms. This includes inability to speak, profound weakness, drooping face.
Instructions: Orthostatic hypotension
Referrals:
Celso Christian DO [Family Provider] -
Liza Wyatt PA-C [Specified Professional Personl] - 04/07/24 3:40 pm (You have a follow up visit with Dr. Collin Fulton's PA, Liza Wyatt, at the [place] office. Please call with questions.)
Prescriptions:
New
ciprofloxacin HCl 500 mg tablet
500 mg PO BID 7 Days Qty: 14 0RF
metoprolol succinate 50 mg Tablet Extended Release 24 Hr
50 mg PO BID 30 Days Qty: 60 0RF
Continued
dexlansoprazole [Dexilant] 60 mg Capsule,Biphase Delayed Releas
60 mg PO DAILY
ascorbate calcium (vitamin C) 500 mg Tablet
1,000 mg PO DAILY
amlodipine 5 mg tablet
5 mg PO DAILY@1330
magnesium oxide 300 mg magnesium Tablet
300 mg PO DAILY
atorvastatin 40 mg tablet
40 mg PO HS
Discontinued
metoprolol succinate 25 mg Tablet Extended Release 24 Hr
25 mg PO BID Qty: 60 0RF
Discharge Orders:
Discharge Patient (As Directed); Ordered 03/19/24
Ordered By: Cecilia Champion
Discharge Date and Time
Discharge Date/Time: 03/19/24 18:00
Print Language: NEPALESE
--- NOTE | 2024-03-19 16:38 | CON.NEURO4 ---
Consultation - Neurology 4
-
CONSULTING PHYSICIAN: Fortino Zaidi MD (Neurology)
REFERRING PHYSICIAN: Hospitalist
DICTATED BY: Fortino Zaidi MD
DATE/TIME OF REQUEST: March 19, 2024
DATE/TIME OF CONSULTATION: March 19, 2024 1130
Reason for Consultation: Difficulty walking
History of Present Illness:
This is a 89 year old right) handed (male who has presented to the hospital with (chief complaint) difficulty walking. He gives a history of paroxysmal Atr fibrill s/p ablation, s/p AVR, HTN, orthostatic HTN, HLD, Connell's esophagus admitted
for chest pain and a progressive disequilibrium. Pt fell in August with CHI and subsequently had progressive difficulty standing and walking, dizzy, off balance for past one week. since the fall in august, stated weak and off balance. a week ago, he
was noted to have dark stool. he took pepto Bismol due to abdominal discomfort. since then his weakness got worse.
He denies neck pain and low back pain. He denies any numbness or weakness of the hands or feet. No headaches or dizziness/vertigo no loss conscious no seizures no difficulty speaking swallowing. Or incoordination.
Following admission he has been placed on antibiotics for UTI and symptoms are resolving
Past Medical History: As above
Surgical History: Aortic valve replacement
Family History: Noncontributory
Social History: Lives at home
Allergies: Percocet
Home Medications: Addendum
Review of Symptoms:
Patient denies any fever, headache, chest pain, shortness of breath, GI or symptoms.
�Per the HPI.�All systems are reviewed negative except above.
�-
Vital Signs:
The patient has a
Temp Pulse Resp BP Pulse Ox
36.5 C 67 17 167/85 99
Physical Exam:
The patient is afebrile, heart sounds S1 and S2 are (regular / irregular), and chest is clear to auscultation bilaterally.
- If not clear, describe.
Neurologic Examination:
The patient is awake, alert and oriented x 3. (He is able to follow commands and answer questions appropriately. There is no aphasia or dysarthria. On cranial nerve assessment, pupils are 3 mm bilateral, round and reactive to light and
accommodation. Visual gonzalez are full. Extraocular movements are intact. Facial sensations are intact and bilaterally symmetrical, there is no facial asymmetry. Hearing is intact bilaterally to normal conversation volume. Tongue palate and uvula
are midline. Sternocleidomastoid strengths are full bilaterally. Motor strengths are 5/5 bilateral upper and lower extremities on medical research Kashia scale. There is no drift or involuntary movement noted. Deep tendon reflexes are 2+ bilateral
upper and lower extremities and Babinski is absent bilaterally. Sensations of pain, touch, temperature and vibration are intact and bilaterally symmetrical. There was no extinction noted on double simultaneous stimulation. Coordination is intact by
finger to nose bilaterally.
Lab Results: See addendum
Neuro Imaging: Atrophy small vessel disease mild ventricular expansion
Impression:
(Mr. GIORGIO ENGEL is a 89 year old M who has presented to the hospital with (symptoms/chief complaint). Intermittent gait ataxia
Differentials for the patient's presentation include:
1. Postconcussion syndrome
2. Urosepsis
3. Hypertensive urgency
Recommendations:
1. Continue ceftriaxone
2. Aspirin 81 mg daily
3. Metoprolol 50 mg
4. PT/OT
Discussed patient care with: Hospitalist and patient he may be discharged home once medically stable
He may be discharged home once medically stable
Allergies
-
Allergies
Allergy/AdvReac Type Severity Reaction Status Date / Time
acetaminophen [From Percocet] Allergy Unknown Nausea / Verified 06/14/23 13:57
Vomiting
oxycodone [From Percocet] Allergy Unknown Nausea / Verified 06/14/23 13:57
Vomiting
Medications
-
Active Medications
Generic Name Dose Route Start Last Admin
Trade Name Freq PRN Reason Stop Dose Admin
Amlodipine Besylate 5 mg 03/19/24 13:30 03/19/24 13:56
Amlodipine 5 Mg Tablet PO 04/16/24 13:29 5 mg
DAILY@1330 ROBER Administration
Atorvastatin Calcium 40 mg 03/18/24 23:32 03/19/24 00:16
Atorvastatin (Lipitor) 40 Mg Tablet PO 04/15/24 23:31 40 mg
HS ROBER Administration
Ceftriaxone Sodium 1,000 mg 03/19/24 00:00 03/19/24 01:36
Ceftriaxone 1000 Mg / 10 Ml Vial IV 1,000 mg
Q24H ROBER Administration
Enoxaparin Sodium 40 mg 03/19/24 18:00
Enoxaparin Sodium 40 Mg/0.4 Ml Syringe SC 04/16/24 17:59
QPM ROBER
Hydralazine HCl 5 mg 03/19/24 12:01
Hydralazine 20 Mg/Ml Vial IV 04/16/24 12:00
Q6HPRN PRN
high blood pressure
Magnesium 84 mg 03/19/24 08:00 03/19/24 09:24
Magnesium Lactate 84 Mg Tablet PO 04/16/24 07:59 84 mg
DAILY ROBER Administration
Metoprolol Succinate 50 mg 03/19/24 20:00
Metoprolol 50 Mg Extended Release Tablet PO 04/16/24 07:59
BID ROBER
Pantoprazole Sodium 40 mg 03/19/24 08:00 03/19/24 09:24
Pantoprazole 40 Mg Delayed Release Tablet PO 04/16/24 07:59 40 mg
DAILY ROBER Administration
Sodium Chloride 0 flush 03/18/24 23:00
Sodium Chloride 0.9% (Flush) Syringe IV 04/15/24 22:59
PER PROTOCOL ROBER
Sterile Water 10 ml 03/19/24 00:00 03/19/24 01:35
Sterile Water For Injection 10 Ml Vial IV 04/16/24 00:00 10 ml
Q24H ROBER Administration
Home Medications
�Medication �Instructions �Recorded
ascorbate calcium (vitamin C) 500 1,000 mg PO DAILY Supplement 06/07/23
mg tablet
dexlansoprazole 60 mg 60 mg PO DAILY Gastrointestinal 06/07/23
capsule,biphase delayed release Issue
(Dexilant)
amlodipine 5 mg tablet 5 mg PO DAILY@1330 Blood Pressure 03/18/24
atorvastatin 40 mg tablet 40 mg PO HS High Cholesterol 03/18/24
magnesium oxide 300 mg PO DAILY Supplement 03/18/24
ciprofloxacin HCl 500 mg tablet 500 mg PO BID 7 days #14 tabs 03/19/24
metoprolol succinate 50 mg 50 mg PO BID 30 days #60 tabs 03/19/24
tablet,extended release 24 hr
Vital Signs and Labs
-
Vital Signs and Labs:
Vital Signs
Temp Pulse Resp BP Pulse Ox
36.5 C 67 17 167/85 99
03/19/24 13:48 03/19/24 13:48 03/19/24 13:48 03/19/24 13:48 03/19/24 13:48
Lab Results
03/19/24 07:18
03/19/24 07:18
Sodium 131 mmol/L (135-145) L 03/19/24 07:18
Potassium 3.9 mmol/L (3.5-5.1) 03/19/24 07:18
BUN 25 mg/dl (9-20) H 03/19/24 07:18
Glucose 77 mg/dl (70-99) 03/19/24 07:18
Calcium 8.9 mg/dl (8.4-10.2) 03/19/24 07:18
LDL Cholesterol, Calc 65 mg/dl 03/19/24 07:18
== END 2024-03-19 18:00 | disposition home or self-care (01) | DRG 313 ==
LOC: 4 WEST ACU 22:35
PROVIDERS: Registered Nurse; Student in an Organized Health Care Education/Training Program; ADMITTING PHYSICIAN Hospitalist; ATTENDING PHYSICIAN Family Medicine; CONSULT PHYSICIAN Psychiatry & Neurology Neurology; EMERGENCY PHYSICIAN Emergency Medicine; FAMILY PHYSICIAN Family Medicine; OTHER PHYSICIAN Internal Medicine Cardiovascular Disease
DX: R07.9 Chest pain, unspecified (principal); E87.1 Hypo-osmolality and hyponatremia; N39.0 Urinary tract infection, site not specified; I95.1 Orthostatic hypotension; I11.9 Hypertensive heart disease without heart failure; I48.0 Paroxysmal atrial fibrillation; K22.70 Barrett's esophagus without dysplasia; I16.0 Hypertensive urgency; F07.81 Postconcussional syndrome; E78.00 Pure hypercholesterolemia, unspecified; K21.9 Gastro-esophageal reflux disease without esophagitis; Z87.891 Personal history of nicotine dependence
CPT/HCPCS: 70450; 71046; 80048; 80053; 80061; 81003; 81015; 83036; 84484; 85025; 85027; 87070; 87077; 87086; 87186; 93005; 93306; 97162; 97165; 99285